=== PATIENT | female | born 1985 | race Caucasian/White ===

== ENCOUNTER 2023-08-22 05:43 | Inpatient (IN) ==
[2023-08-22] MEDS ORDERED: Buffered Lidocaine 1% SYRIN 1 ml INTRADERM ONE (06:17)
[2023-08-22] MEDS ORDERED: Lactated Ringers 1000 ml BAG 1,000 ML IV ONE ×2 (06:17→18:43)
[2023-08-22] MEDS ORDERED: Lidocaine 1% VIAL 10 MG/ML 30 ML VIAL INJ PRN (06:17)
[2023-08-22] MEDS ORDERED: Lactated Ringers 1000 ml BAG 1,000 ML IV SCH ×2 (07:00→19:00)
[2023-08-22 07:47] LABS: Urine Benzodiazepine Screen None Detected (None Detect); Urine Cannabinoids Screen None Detected (None Detect); Urine Opiates Screen None Detected (None Detect)
[2023-08-22] MEDS ORDERED: Promethazine INJ(RESTRICTED) 25 MG/ML 1 ml VIAL IM PRN (09:12)
[2023-08-22 13:14] LABS: ABS Basophils 0.1 10^3/uL (0.0-0.1); ABS Eosinophils 0.1 10^3/uL (0.0-0.5); ABS Monocytes 0.6 10^3/uL (0.0-0.9); ABS Neutrophils 14.4 10^3/uL (1.5-7.6); ABS Nucleated RBC 0.02 10^3/ul; Eosinophil % 0.5 %; Hematocrit 42.6 % (35-45); Hemoglobin 14.6 g/dL (11.5-14.3); Lymphocyte % 11.8 %; Mean Corpuscular Hemoglobin 30.9 pg (27-33); Mean Corpuscular Hgb Conc 34.3 g/dL (31-36); Mean Corpuscular Volume 90.1 fL (80-97); Mean Platelet Volume 10.9 fL (7.5-11.2); Nucleated Red Blood Cells % 0.1 /100 WBC (0.0-0.4); Platelet Count 226 10^3/uL (150-450); Red Blood Count 4.72 10^6/uL (3.63-4.92); Red Cell Distribution Width 14.5 % (12-17); White Blood Count 17.2 10^3/uL (3.8-11.8)
[2023-08-22 14:00] LABS: Albumin 3.9 g/dL (3.2-5.2); CO2 Carbon Dioxide 22 mmol/L (22-32); Calcium 9.3 mg/dL (8.6-10.3); Chloride 106 mmol/L (101-111); Sodium 137 mmol/L (135-145)
[2023-08-22 14:06] LABS: ALT 29 U/L (7-52); Albumin/Globulin Ratio 1.3 (1-3); Alkaline Phosphatase 151 U/L (35-149); Blood Urea Nitrogen 12 mg/dL (6-24); Creatinine, Serum 0.85 mg/dL (0.51-0.95); Globulin 3.1 g/dL (2-4); Glucose 69 mg/dL (70-100); eGFR CKD-EPI 91.6 (>60)
[2023-08-22 14:15] LABS: Anion Gap 9 mmol/L (2-16)
[2023-08-22] MEDS ORDERED: Lidocaine 1.5% EPI 1:200,000 30 ML SDV ONE (18:10)
[2023-08-22] MEDS ORDERED: OBEPIDURAL (200 ML) 200 ML EPIDURAL ONE (18:10)
[2023-08-22] MEDS ORDERED: Phenylephrine 40 mcg/mL 10mL (400mcg) SYRINGE IV PUSH PRN ×2 (18:43)
[2023-08-22] MEDS ORDERED: Sodium Citrate/Citric Acid LIQ 15 ML UDC PO PRN (18:43)
[2023-08-22] MEDS ORDERED: Lactated Ringers 1000 ml BAG 500 ML IV PRN ×2 (18:43)
[2023-08-22 19:36] LABS: Urine Appearance Clear; Urine Bilirubin Negative (Negative); Urine Blood 2+ (Negative); Urine Color Straw; Urine Glucose Negative (Negative); Urine Ketones Negative (Negative); Urine Nitrite Negative (Negative); Urine Protein Negative (Negative); Urine Specific Gravity 1.005 (1.002-1.030); Urine Urobilinogen Negative (Negative)
[2023-08-22 19:38] LABS: Urine Bacteria Absent (Absent); Urine Red Blood Cell 1+(3-5/hpf) (Absent); Urine Squamous Epithelial Cell Present (Absent); Urine White Blood Cell Trace(0-5/hpf) (Absent)
[2023-08-22] MEDS ORDERED: Calcium Carb (TUMS) 500 mg CHEW TAB PO PRN (20:12)
[2023-08-22] MEDS ORDERED: Oxytocin in LR 20,000 MILLI.UNIT/1,000 ML BAG IV SCH (20:15)
[2023-08-22] MEDS: OBEPIDURAL (200 ML) 200 ML EPIDURAL SCH (23:00)
[2023-08-23] MEDS ORDERED: Acetaminophen IV 1 GM/100ML 1,000 MG/100 ML BAG IV ONE (09:45)
[2023-08-23] MEDS ORDERED: Gentamicin ADULT 300 MG in NS 0.9% 100 ml BAG 100 ML IVPB ONE (09:51)
[2023-08-23] MEDS ORDERED: Clindamycin 900 MG/D5W BAG 900 MG/50 ML BAG IVPB SCH (10:00)
[2023-08-23] MEDS: OBEPIDURAL (200 ML) 200 ML EPIDURAL SCH (10:17)
[2023-08-23] MEDS: Clindamycin 900 MG/50 **NS BAG 900 MG/50 ML BAG IV SCH ×2 (10:41→18:13)
[2023-08-23] MEDS ORDERED: Lidocaine 2% w/ EPI 1:200,000 MPF 20 ML SDV VIAL ONE (11:09)
[2023-08-23] MEDS ORDERED: Morphine PF AMP (0.5MG/ML) 5 MG/10 ML AMP ONE (11:37)
[2023-08-23] MEDS ORDERED: Acetaminophen IV 1 GM/100ML 1,000 MG/100 ML BAG IV PRN (11:58)
[2023-08-23] MEDS ORDERED: Metoclopramide 5 MG/ML VIAL (10 mg) IV PRN (11:58)
[2023-08-23] MEDS ORDERED: Naloxone 0.4 mg VIAL 0.4 mg/ml 1 ml VIAL IV PUSH PRN (11:58)
[2023-08-23] MEDS ORDERED: Ondansetron 4 mg VIAL 2 MG/ML 2 ml VIAL IV PRN (11:58)
[2023-08-23] MEDS ORDERED: Oxytocin in LR 20,000 MILLI.UNIT/1,000 ML BAG IV SCH (12:50)
[2023-08-23] MEDS ORDERED: Witch Hazel PAD JAR TOPICAL PRN (12:50)
[2023-08-23] MEDS ORDERED: Glycerin ADULT 2.4 gm SUPP PR PRN (12:50)
[2023-08-23] MEDS ORDERED: Lactated Ringers 1000 ml BAG 1,000 ML IV SCH (13:00)
[2023-08-24] MEDS: Clindamycin 900 MG/50 **NS BAG 900 MG/50 ML BAG IV SCH (01:54)
[2023-08-24 06:18] LABS: ABS Eosinophils 0.3 10^3/uL (0.0-0.5); ABS Lymphocytes 1.7 10^3/uL (1.0-4.8); ABS Monocytes 0.7 10^3/uL (0.0-0.9); ABS Neutrophils 10.1 10^3/uL (1.5-7.6); Eosinophil % 2.1 %; Hematocrit 27.8 % (35-45); Hemoglobin 9.5 g/dL (11.5-14.3); Mean Corpuscular Hgb Conc 34.2 g/dL (31-36); Mean Corpuscular Volume 90.7 fL (80-97); Mean Platelet Volume 9.7 fL (7.5-11.2); Platelet Count 150 10^3/uL (150-450); Red Blood Count 3.07 10^6/uL (3.63-4.92); Red Cell Distribution Width 14.4 % (12-17); White Blood Count 12.7 10^3/uL (3.8-11.8)
[2023-08-25 08:20] VITALS: BP 130/78
== END 2023-08-25 13:38 | disposition home or self-care (01) | DRG 540 ==
LOC: MCHOBOUT 05:43 → MCHOB 06:14
PROVIDERS: ADMIT Midwife; ATTEND Obstetrics & Gynecology